=== PATIENT | female | born 1930 | race Caucasian/White ===

== ENCOUNTER 2021-06-05 19:23 | Inpatient (IN) | payer MEDICAID, OTHER ==
[~2021-06-05] VITALS: Ht 157.5 cm; Wt 85.7 kg
--- NOTE | 2021-06-05 19:30 | NUR ---
Note undone in EDM - 06/05/21 at 2015 by SAUNDRA PT BIBRA C/O AMS AND O2 SAT IN THE 80S. PT AAOX1 BREATHING EVENLY, BUT RAPIDLY. PT ATTACHED TO STAFFING MANAGER AND POX. MD AT BEDSIDE. SKIN IS WARM AND DRY. UPON ASSESSMENT FOUL ODOR NOTED FROM GENITAL AREA. PT GIVEN BLANKET AND CALL LIGHT WITHIN REACH
--- NOTE | 2021-06-05 19:30 | NUR ---
BLOOD SENT TO LAB
--- NOTE | 2021-06-05 19:30 | NUR ---
PT BIBRA C/O AMS AND O2 SAT IN THE 80S. PT AAOX1 BREATHING EVENLY, BUT RAPIDLY. PT PLACED ON 6L O2 VIA NC AND SATURATING AT 95%. PT ATTACHED TO FRAME POLISHER AND POX. MD AT BEDSIDE. SKIN IS WARM AND DRY. UPON ASSESSMENT FOUL ODOR NOTED FROM GENITAL AREA. PT GIVEN BLANKET AND CALL LIGHT WITHIN REACH
--- NOTE | 2021-06-05 19:35 | NUR ---
COVID SWAB COLLECTED AND SENT TO LAB
[2021-06-05 19:50] LABS: BASOPHILS # (AUTO) 0.2 K/uL (0.0-0.2); BASOPHILS % (AUTO) 3.1 % (0.0-2.0); HEMATOCRIT 42 % (33-45); HEMOGLOBIN 13.5 g/dL (11.5-14.8); LYMPHOCYTES # (AUTO) 2.2 K/uL (0.8-4.8); LYMPHOCYTES % (AUTO) 27.7 % (20.0-44.0); MEAN CORPUSCULAR HGB CONC 32 g/dl (31.0-36.0); MEAN CORPUSCULAR VOLUME 82 fL (82-100); MONOCYTES # (AUTO) 0.8 K/uL (0.1-1.30); MONOCYTES % (AUTO) 9.7 % (2.0-12.0); NEUTROPHILS # (AUTO) 4.7 K/uL (1.8-8.9); NEUTROPHILS % (AUTO) 59.5 % (43.0-81.0); PLATELET COUNT (AUTO) 309 K/uL (150-450); RED BLOOD CELL COUNT(AUTO) 5.13 MIL/uL (4.0-5.2); WHITE BLOOD COUNT (AUTO) 7.9 K/uL (4.3-11.0)
[2021-06-05 20:02] LABS: CALCIUM, SERUM 8.7 mg/dL (8.5-10.1); CARBON DIOXIDE 25 mmol/L (21-32); CHLORIDE 102 mmol/L (98-107); CREATININE 2.2 mg/dL (0.6-1.3); GLUCOSE 111 mg/dL (74-106); POTASSIUM 4.1 mmol/L (3.5-5.1); SODIUM SERUM 139 mmol/L (136-145); UREA NITROGEN, BLOOD 59 mg/dL (7-18)
--- NOTE | 2021-06-05 20:06 | NUR ---
URINE COLLECTED AND SENT TO LAB
[2021-06-05 20:09] LABS: ALANINE AMINOTRANSFERASE 29 U/L (12-78); ALKALINE PHOSPHATASE 59 U/L (46-116); ASPARTATE AMINOTRANSFERASE 49 U/L (15-37); BILIRUBIN,DIRECT 0.4 mg/dL (0.0-0.2); BILIRUBIN,TOTAL 0.7 mg/dL (0.2-1.0); TOTAL PROTEIN, SERUM 7.5 g/dL (6.4-8.2)
[2021-06-05 20:29] LABS: BILIRUBIN,URINE MODERATE (NEGATIVE); COLOR,URINE YELLOW (YELLOW); LEUKOCYTE ESTERASE ,URINE Negative (NEGATIVE); NITRITE, URINE Negative (NEGATIVE); PROTEIN,URINE 30 mg/dl (NEGATIVE); UGLUCOSE Negative (NEGATIVE)
[2021-06-05 20:35] LABS: BACTERIA,URINE Rare /HPF (None Seen); RBC,URINE NONE SEEN /HPF (0-2); SQUAMOUS EPITHELIAL CELL,UR Few /HPF (None Seen); WBC,URINE NONE SEEN /HPF (0-3)
[2021-06-05] MEDS ORDERED: CEFTRIAXONE 1 G in IV D5W 50 ML IV ONE (21:00)
[2021-06-05] MEDS ORDERED: IV NS 0.9% 500 ML IV ONE (21:00)
[2021-06-05] MEDS ORDERED: CEFTRIAXONE 1GM BAG (ER ONLY) 50 ML IV ONE (21:07)
[2021-06-05 21:11] LABS: ABG BASE EXCESS -3.5 mmol/L; ABG PCO2 34.4 mmHg (35.0-45.0); ABG PH 7.395 (7.350-7.450); ABG PO2 93.5 mmHg (75.0-100.0); AaDO2 152.1 mmHg; COHb 0.4 % (0.5-1.5); MetHb 0.4 % (0.0-1.5); O2Hb 95.2 % (94.0-97.0); SITE, ABG Right Radial; VENT MODE, BG 5L N/C
[2021-06-05] MEDS ORDERED: AZITHROMYCIN 500 MG VIAL ONE (21:21)
[2021-06-05] MEDS ORDERED: DEXAMETHASONE SOD PHOSPHATE 10 MG/ML VIAL ONE (21:21)
--- NOTE | 2021-06-05 21:29 | NUR ---
walt daughter [phone]
[2021-06-05] MEDS ORDERED: AZITHROMYCIN 500 MG in IV D5W 250 ML IV ONE (21:30)
[2021-06-05] MEDS ORDERED: DEXAMETHASONE SOD PHOSPHATE 10 MG/ML VIAL IV ONE (21:30)
[2021-06-05] MEDS ORDERED: ACETAMINOPHEN 325 MG TABLET PO PRN (22:00)
[2021-06-05] MEDS ORDERED: ONDANSETRON HCL/PF 4 MG/2 ML VIAL IVP PRN (22:00)
[2021-06-05] MEDS ORDERED: ZOLPIDEM TARTRATE 5 MG TABLET PO PRN (22:00)
[2021-06-05] MEDS ORDERED: Z GUARD REMEDY 2 OZ OINT TP PRN (22:00)
[2021-06-05] MEDS ORDERED: MAG HYDROX/AL HYDROX/SIMETH 30 ML UDC PO PRN (22:00)
[2021-06-05] MEDS ORDERED: MAGNESIUM HYDROXIDE 30 ML UDC PO PRN (22:00)
--- NOTE | 2021-06-05 22:16 | NUR ---
BED 103
--- NOTE | 2021-06-05 23:43 | NUR ---
attempted to give report to rn. will call back
[2021-06-06 00:45] VITALS: BP 102/72
--- NOTE | 2021-06-06 01:00 | NUR ---
RN NOTES, AT 0045 RECEIVED 89 YO FEMALE ADMITTED FROM ER DEPARTMENT VIA STRETCHER ACCOMPANIED BY 3NURSES, PATIENT AWAKE, A/O TO SELF, UNABLE TO GIVE FURTHER INFORMATION, UNDER MEDICAL SERVICES OF DR JACOB WATSON, WITH ADMITTING DX COVID/PNA, BREATHING EVEN AND UNLABORED, NO SOB/ACUTE DISTRESS NOTED AT THIS TIME, ON 5LPM VIA NC, WITH O2 SAT >96%, POSITIVE RAPID FOR COVID 19, ISOLATION PRECAUTION IN PLACED, IV ACCESS IN RIGHT AC AND LEFT AC BOTH PATENT AND INTACT 0040, , SKIN INTACT, AFEBRILE, SOME REDNESS IN SACRAL/GLUTEAL, BREAST FOLDS, BILATERAL HEELS, PICTURES TAKEN AND FILED IN CHART, WHEN ATTACHED TO TELE MONITOR PATIENT, NOTED NSR WITH HR 80S, ALL NEEDS PROVIDED, BED LOCKED AND IN LOWEST POSITION, WILL CONT TO MONITOR CLOSELY.
--- NOTE | 2021-06-06 03:35 | NUR ---
RN NOTES, UPDATE GIVEN TO DAUGHTER REID, AND SHE STATED SHE WANTS HER MOM FULL CODE.
[2021-06-06 04:00] VITALS: BP 140/76
[2021-06-06 06:24] LABS: BASOPHILS % (AUTO) 0.3 % (0.0-2.0); HEMATOCRIT 36 % (33-45); HEMOGLOBIN 11.9 g/dL (11.5-14.8); LYMPHOCYTES # (AUTO) 1.2 K/uL (0.8-4.8); MEAN CORPUSCULAR HGB CONC 33 g/dl (31.0-36.0); MEAN CORPUSCULAR VOLUME 81 fL (82-100); MONOCYTES # (AUTO) 0.3 K/uL (0.1-1.30); MONOCYTES % (AUTO) 4.1 % (2.0-12.0); NEUTROPHILS # (AUTO) 4.8 K/uL (1.8-8.9); NEUTROPHILS % (AUTO) 76.6 % (43.0-81.0); PLATELET COUNT (AUTO) 289 K/uL (150-450); RED BLOOD CELL COUNT(AUTO) 4.37 MIL/uL (4.0-5.2); WHITE BLOOD COUNT (AUTO) 6.2 K/uL (4.3-11.0)
--- NOTE | 2021-06-06 06:32 | NUR ---
RN NOTE PATIENT A/O TO SELF, ON NC @5LPM O2 SAT > 94%, NO SOB/ACUTE DISTRESS NOTED DURING THE REST OF THE NIGHT, NO EPISODES OF DESATURATION NOTED, ON BILATERAL SOF WRIST RESTRAINS, FREQUENT CIRCULATION CHEKS DONE, NO CIRCULATION COMPROMISED, NO ABNORMALITY NOTED AT SITE, ALL SAFETY PRECAUTIONS IN PLACED, NO SIGNIFICANT CHANGE IN CONDITION, CALL LIGHT WITHIN REACH, WILL ENDORSE CONTINUITY OFF CARE TO ONCOMING NURSE.
[2021-06-06 06:41] LABS: CALCIUM, SERUM 8.2 mg/dL (8.5-10.1); CARBON DIOXIDE 25 mmol/L (21-32); CHLORIDE 104 mmol/L (98-107); CREATININE 1.9 mg/dL (0.6-1.3); GLUCOSE 178 mg/dL (74-106); MAGNESIUM 3.1 mg/dL (1.8-2.4); PHOSPHORUS 5.2 mg/dL (2.5-4.9); POTASSIUM 4.4 mmol/L (3.5-5.1); SODIUM SERUM 142 mmol/L (136-145); UREA NITROGEN, BLOOD 56 mg/dL (7-18)
[2021-06-06 06:59] LABS: CHOLESTEROL 129 mg/dL (<200); HDL CHOLESTEROL 43 mg/dL (40-60); LDL 80 mg/dL (0-99); THYROID STIMULATING HORMONE 0.389 uIU/mL (0.358-3.74); TRIGLYCERIDES 98 mg/dL (30-150)
[2021-06-06] MEDS: PANTOPRAZOLE 40 MG TABLET.DR PO SCH (07:30)
--- NOTE | 2021-06-06 07:30 | NUR ---
PT RECEIVED RESTING COMFORTABLY IN BED. NO S/S OR C/O PAIN OR DISTRESS NOTED. SIDE RAILS UP X2, CALL LIGHT LEFT WITHIN REACH. WILL CONTINUE PLAN OF CARE.
[2021-06-06] MEDS: DEXAMETHASONE SOD PHOSPHATE 10 MG/ML VIAL IV SCH (08:37)
[2021-06-06] MEDS: IV D5/ 0.9% NACL 1,000 ML IV PRN (09:37)
[2021-06-06] MEDS: HEPARIN SODIUM, PORCINE 5000 UNITS/1 ML VIAL SQ SCH ×3 (09:47→21:38)
[2021-06-06] MEDS: QUETIAPINE FUMARATE 25 MG TABLET PO SCH ×2 (12:09→17:45)
[2021-06-06] MEDS ORDERED: QUETIAPINE FUMARATE 25 MG TABLET PO PRN (15:00)
--- NOTE | 2021-06-06 18:26 | NUR ---
CHANGE OF SHIFT REPORT PT RESTING COMFORTABLY IN BED. NO S/S OR C/O PAIN OR DISTRESS NOTED. SIDE RAILS UP X2, CALL LIGHT LEFT WITHIN REACH. PT KEPT CLEAN, DRY, AND COMFORTABLE. NO SIGNIFICANT CHANGES SINCE PREVIOUS SHIFT. WILL GIVE REPORT TO ALFRED MUNOZ.
[2021-06-06 20:00] VITALS: BP 148/87
[2021-06-06] MEDS ORDERED: REMDESIVIR (CHARGED) 200 MG, *LOADING DOSE 1 EA in IV NS 0.9% 210 ML IV ONE (21:00)
--- NOTE | 2021-06-06 21:30 | NUR ---
RESIDENT CAREGIVER NOTES NOTIFIED [facility] TELETYPESETTER MONITOR RE REMDESIVIR ORDER. PER [facility]SHA, NEEDS AUTH FROM [facility]. WON'T BE ABLE TO ADMINISTER DOSE FOR TONIGHT. NOTIFIED TWISTING MACHINE OPERATOR. NOTIFIED JUNIOR ASSISTANT MANAGER. NOTIFIED MAHNAZ RESAW OPERATOR TELETYPESETTER MONITOR. WILL CONTINUE TO MONITOR.
[2021-06-06] MEDS: AZITHROMYCIN 500 MG in IV D5W 250 ML IV SCH (21:37)
[2021-06-06] MEDS: CEFTRIAXONE 1 G in IV D5W 50 ML IV SCH (21:37)
--- NOTE | 2021-06-06 21:38 | NUR ---
CLUSTER BORE OPERATOR NOTES PT REFUSED TO HAVE HEPARIN AT THIS TIME. EXPLAINED TO PT IMPORTANCE OF HEPARIN IN HER POC BUT PT STILL REFUSED. WILL CONTINUE TO MONITOR.
[2021-06-07] VITALS (7 sets, daily range): BP systolic 141–163; BP diastolic 81–99
--- NOTE | 2021-06-07 04:00 | NUR ---
SUPERVISOR ACOUSTICAL TILE CARPENTERS NOTES PT REFUSED TO HAVE OXYGEN ON. EXPLAINED TO PT IMPORTANCE OF OXYGEN IN HER POC BUT PT STILL REFUSED. WILL CONTINUE TO MONITOR.
[2021-06-07] MEDS: IV D5/ 0.9% NACL 1,000 ML IV PRN ×2 (05:54→18:32)
--- NOTE | 2021-06-07 06:00 | NUR ---
TECHNICAL ASSISTANT NOTES PT REFUSED TO HAVE BLOOD DRAW. EXPLAINED TO PT IMPORTANCE OF LABS IN HER POC BUT PT STILL REFUSED. WILL CONTINUE TO MONITOR.
--- NOTE | 2021-06-07 06:21 | NUR ---
SECURITIES DEALER NOTES AWAKE & RESPONSIVE. NOT IN ANY DISTRESS. NO SOB NOTED. DENIES ANY PAIN OR DISCOMFORT AT THIS TIME. STILL REFUSING OXYGEN AT THIS TIME. ON TELE SR @ 73 WITH IVF INFUSING WELL. AM CARE DONE. MONITORED ACCORDINGLY. CALL LIGHT WITHIN REACH. BED IN LOWEST POSITION. SR UP X 3 WITH BED ALARM ON FOR SAFETY. WILL ENDORSE TO NEXT SHIFT.
--- NOTE | 2021-06-07 07:52 | NUR ---
RN NOTE PATIENT IS IN BED WITH HOB AT SEMI CABA'S POSITION. PATIENT IS AOX1 AND CONFUSED. PATIENT IS ON 4L NC WITH NO SIGNS OF LABORED BREATHING. RAC #18 IS PATENT AND INTACT. BED IS LOCKED IN THE LOWEST POSITION, 3 GUARD RAILS RAISED, CALL RODRÍGUEZ WITHIN REACH, AND ALL HOSPITAL SAFETY PRECAUTIONS ARE BEING FOLLOWED. WILL CONTINUE OT MONITOR THROUGHOUT SHIFT.
[2021-06-07] MEDS: QUETIAPINE FUMARATE 25 MG TABLET PO SCH ×2 (08:50→16:50)
[2021-06-07] MEDS: PANTOPRAZOLE 40 MG TABLET.DR PO SCH (08:51)
[2021-06-07] MEDS: DEXAMETHASONE SOD PHOSPHATE 10 MG/ML VIAL IV SCH (08:51)
[2021-06-07] MEDS: HEPARIN SODIUM, PORCINE 5000 UNITS/1 ML VIAL SQ SCH ×3 (08:54→21:51)
--- NOTE | 2021-06-07 09:00 | NUR ---
RN NOTE NOTIFIED DR. CH OF PATIENT'S BP 160/80. ORDERING NORVASC 5 MG PO DAILY DIRECTED. WILL CONTINUE TO MONITOR.
[2021-06-07] MEDS: AMLODIPINE BESYLATE 5 MG TABLET PO SCH (09:20)
[2021-06-07 11:42] LABS: BASOPHILS # (AUTO) 0.1 K/uL (0.0-0.2); BASOPHILS % (AUTO) 0.6 % (0.0-2.0); HEMATOCRIT 40 % (33-45); LYMPHOCYTES # (AUTO) 2.3 K/uL (0.8-4.8); LYMPHOCYTES % (AUTO) 17.2 % (20.0-44.0); MEAN CORPUSCULAR HGB CONC 33 g/dl (31.0-36.0); MEAN CORPUSCULAR VOLUME 82 fL (82-100); MONOCYTES % (AUTO) 7.3 % (2.0-12.0); NEUTROPHILS # (AUTO) 10.2 K/uL (1.8-8.9); NEUTROPHILS % (AUTO) 74.9 % (43.0-81.0); PLATELET COUNT (AUTO) 383 K/uL (150-450); RED BLOOD CELL COUNT(AUTO) 4.86 MIL/uL (4.0-5.2); WHITE BLOOD COUNT (AUTO) 13.6 K/uL (4.3-11.0)
[2021-06-07 11:48] LABS: CALCIUM, SERUM 8.4 mg/dL (8.5-10.1); CARBON DIOXIDE 26 mmol/L (21-32); CHLORIDE 105 mmol/L (98-107); CREATININE 1.5 mg/dL (0.6-1.3); GLUCOSE 250 mg/dL (74-106); SODIUM SERUM 140 mmol/L (136-145); UREA NITROGEN, BLOOD 43 mg/dL (7-18)
[2021-06-07 11:58] LABS: C-REACTIVE PROTEIN 4.8 mg/dL (0.0-0.9)
[2021-06-07] MEDS ORDERED: INSULIN REGULAR, HUMAN 100 UNIT/ML 10 ML VIAL IV ONE (13:00)
[2021-06-07] MEDS ORDERED: DEXTROSE 50%-WATER 50 ML DISP.SYRIN IVP ONE (13:00)
[2021-06-07] MEDS ORDERED: SODIUM POLYSTYRENE SULFONATE 15 G/60 ML BOTTLE PO ONE ×2 (13:00→14:30)
[2021-06-07] MEDS ORDERED: FUROSEMIDE 20 MG/2 ML VIAL IV ONE (13:00)
[2021-06-07] MEDS: BLOOD SUGAR DIAGNOSTIC 1 EACH STRIP IN SCH ×3 (14:18→21:47)
[2021-06-07] MEDS: INSULIN REGULAR, HUMAN 100 UNIT/ML 3 ML VIAL SQ PRN ×2 (14:18→17:23)
[2021-06-07 14:25] LABS: ALBUMIN 2.6 g/dL (3.4-5.0); BILIRUBIN,DIRECT 0.1 mg/dL (0.0-0.2); BILIRUBIN,TOTAL 0.5 mg/dL (0.2-1.0); TOTAL PROTEIN, SERUM 7.2 g/dL (6.4-8.2)
[2021-06-07] MEDS ORDERED: DEXTROSE 50%-WATER 50 ML DISP.SYRIN IV PRN (14:30)
--- NOTE | 2021-06-07 18:42 | NUR ---
RN NOTE PATIENT IS IN BED WITH HOB AT SEMI CABA'S POSITION. PATIENT IS AOX1 AND CONFUSED. PATIENT IS ON 4L NC WITH NO SIGNS OF LABORED BREATHING. RAC #18 IS PATENT AND INTACT. BED IS LOCKED IN THE LOWEST POSITION, 3 GUARD RAILS RAISED, CALL RODRÍGUEZ WITHIN REACH, AND ALL HOSPITAL SAFETY PRECAUTIONS ARE BEING FOLLOWED. ALL DUE MEDS GIVEN AND PATIENT REMAINED STABLE THROUGHOUT SHIFT. WILL ENDORSE TO SYNTHETIC SOIL BLOCKS PULPER RN.
[2021-06-07 18:43] LABS: CALCIUM, SERUM 7.9 mg/dL (8.5-10.1); CARBON DIOXIDE 28 mmol/L (21-32); CHLORIDE 104 mmol/L (98-107); CREATININE 1.5 mg/dL (0.6-1.3); GLUCOSE 271 mg/dL (74-106); POTASSIUM 3.8 mmol/L (3.5-5.1); SODIUM SERUM 142 mmol/L (136-145); UREA NITROGEN, BLOOD 36 mg/dL (7-18)
--- NOTE | 2021-06-07 19:15 | NUR ---
RN OPENING NOTE PATIENT IN BED, EYES CLOSED. EASILY AWAKENED. PATIENT IS A/O X 1 AT THIS TIME, CONFUSED. PATIENT HAS BILATERAL SOFT WRIST RESTRAINTS ON D/T PULLING ON TUBES. PATIENT ALSO HAS A SWEENEY PRESENT DRAINING YELLOW URINE. PATIENT HAS 4 L ON NC, BREATHING EVEN AND UNLABORED. RAC 18 G IV ACCESS PATENT AND INTACT, RUNNING D5 NS AT 75 ML/HR. SAFETY MEASURES IN PLACE: BED LOCKED AND IN LOWEST POSITION, CALL LIGHT WITHIN REACH, SIDE RAILS UP. WILL MONITOR PATIENT'S BEHAVIOR Q 2H AND SAFETY.
[2021-06-07] MEDS ORDERED: REMDESIVIR (CHARGED) 100 MG in IV NS 0.9% 230 ML IV SCH (21:00)
[2021-06-07] MEDS: *INSULIN REGULAR(HUMULIN R)HUM 100 UNIT/ML VIAL SQ PRN (21:50)
--- NOTE | 2021-06-07 21:50 | NUR ---
RN NOTE BS 167 MG/DL. 3 UNITS COVERAGE GIVEN. PROVIDED SNACK, PATIENT REFUSED AT THIS TIME. WILL MONITOR PATIENT FOR HYPOGLYCEMIA.
[2021-06-07] MEDS: CEFTRIAXONE 1 G in IV D5W 50 ML IV SCH (21:55)
[2021-06-07] MEDS: AZITHROMYCIN 500 MG in IV D5W 250 ML IV SCH (22:31)
[2021-06-08] VITALS (7 sets, daily range): BP systolic 140–173; BP diastolic 73–101
--- NOTE | 2021-06-08 00:53 | NUR ---
RN NOTE PATIENT REFUSING HYDRALAZINE, RISK AND BENEFITS EDUCATION GIVEN, PATIENT CONTINUES TO REFUSE. CHARGE NURSE AWARE. WILL RECHECK BP AT A LATER TIME. Addendum: 06/08/21 at 0436 by ANAI PEARSON RN BP WAS 173/101
--- NOTE | 2021-06-08 03:59 | NUR ---
RN NOTE PATIENT EXTREMELY AGITATED AT THIS TIME, UNABLE TO TAKE ACCURATE BP D/T PATIENT SCREAMING AND YELLING. NOTIFIED MD OF SITUATION AND REQUESTED FOR MED TO CALM PATIENT DOWN. WAITING FOR MD RESPONSE.
[2021-06-08] MEDS: IV D5/ 0.9% NACL 1,000 ML IV PRN (06:28)
--- NOTE | 2021-06-08 06:30 | NUR ---
RN CLOSING NOTE PATIENT'S BP 168/101, REFUSING HYDRALAZINE STILL. NOTIFIED THAT PATIENT'S REFUSING HYDRALAZINE. PATIENT IS STILL A/O X 1, CONFUSED. NOT IN ANY APPARENT DISTRESS. IV FLUIDS D5 NS RUNNING AT 75 ML/HR. BS 109 MG/DL, NO COVERAGE GIVEN, OFFERED PATIENT SNACKS BUT REFUSED. WILL ENDORSE TO DAY SHIFT NURSE FOR ANASTACIO. Addendum: 06/08/21 at 0726 by ANAI PEARSON RN OBTAINED ORDER FOR LORAZEPAM 1 MG IV Q8HR PRN
[2021-06-08] MEDS: BLOOD SUGAR DIAGNOSTIC 1 EACH STRIP IN SCH ×4 (06:35→21:08)
--- NOTE | 2021-06-08 07:30 | NUR ---
RN OPENING NOTES Patient was received in bed. Patient on arce cath iwth clear yellow urine. On 4 lpm via n/c. HOB kept elevated. Iv fluids to right arm running at 75 cc/hour. Will continue to monitor. Call light with in reach.
[2021-06-08] MEDS: QUETIAPINE FUMARATE 25 MG TABLET PO SCH ×2 (08:38→17:06)
[2021-06-08] MEDS: AMLODIPINE BESYLATE 5 MG TABLET PO SCH (08:38)
[2021-06-08] MEDS: PANTOPRAZOLE 40 MG TABLET.DR PO SCH (08:38)
[2021-06-08] MEDS: DEXAMETHASONE SOD PHOSPHATE 10 MG/ML VIAL IV SCH (08:39)
[2021-06-08] MEDS: HEPARIN SODIUM, PORCINE 5000 UNITS/1 ML VIAL SQ SCH ×2 (08:52→21:12)
--- NOTE | 2021-06-08 10:00 | NUR ---
Patient's restraints removed and patient in good stable condition and not agitated. Fluids encouraged as fara. Bed alarm in place.
[2021-06-08] MEDS: INSULIN REGULAR, HUMAN 100 UNIT/ML 3 ML VIAL SQ PRN ×2 (14:15→18:56)
--- NOTE | 2021-06-08 15:00 | NUR ---
Received order from Dr Federico Chirinos to d/c iv fluids due to patient drinking fluids on her own.
--- NOTE | 2021-06-08 18:59 | NUR ---
RN CLOSING NOTES Patient was received in bed. Patient on arce cath iwth clear yellow urine OF 400 CC. On room air with 02 sat of 98%. HOB kept elevated. Iv site to left hand patent and flushes well. Will continue to monitor. Call light with in reach.Will endorse to next shift for ANASTACIO. Bed is in lowest and locked position. Bed alarm on for safety and fall.
--- NOTE | 2021-06-08 20:00 | NUR ---
UNIT SECY OPENING NOTE RECEIVED PT IN BED WITH EYES CLOSED, AROUSABLE TO STIMULATION. A/O X1-2, CONFUSED AT TIMES. PT IS STABLE ON ROOM AIR SATURATING AT 98%. NO SOB OR S/S OF RESPIRATORY DISTRESS NOTED. PT ON EXTERNAL FINANCE MGR READING SR AT 60 BPM. PT HAS NO C/O PAIN OR DISCOMFORT AT THIS TIME. SWEENEY CATH IN PLACE DRAINING CLEAR YELLOW URINE. IV ACCESS IN LEFT HAND #24, INTACT AND PATENT. SAFETY MEASURES MAINTAINED. BED IN LOWEST LOCKED POSITION, HOB ELEVATED, SIDE RAILS UP X3. CALL LIGHT AND TABLE WITHIN REACH. WILL CONTINUE WITH PLAN OF CARE.
[2021-06-08] MEDS: CEFTRIAXONE 1 G in IV D5W 50 ML IV SCH (21:07)
[2021-06-08] MEDS: *INSULIN REGULAR(HUMULIN R)HUM 100 UNIT/ML VIAL SQ PRN (21:48)
[2021-06-08] MEDS: AZITHROMYCIN 500 MG in IV D5W 250 ML IV SCH (21:49)
[2021-06-09] VITALS: BP 139/85
[2021-06-09 04:00] VITALS: BP 135/80
--- NOTE | 2021-06-09 06:04 | NUR ---
TRY ON BASTER CLOSING NOTE PT IS IN BED WITH EYES CLOSED, AROUSABLE TO STIMULATION. A/O X1-2, CONFUSED AT TIMES. PT IS STABLE ON ROOM AIR SATURATING AT 97%. NO SOB OR S/S OF RESPIRATORY DISTRESS NOTED. PT ON EXTERNAL MANAGER MEETING READING SR AT 67 BPM. PT HAS NO C/O PAIN OR DISCOMFORT AT THIS TIME. SWEENEY CATH IN PLACE DRAINING CLEAR YELLOW URINE. PT NOTED WITH BILATERAL SOFT WRIST RESTRAINTS; GOOD CIRCULATION NOTED. IV ACCESS IS INTACT, PATENT, AND FLUSHING WELL. ALL NEEDS HAVE BEEN MET. SAFETY AND ISOLATION PRECAUTIONS MAINTAINED AT ALL TIMES. BED IN LOWEST LOCKED POSITION, HOB ELEVATED, SIDE RAILS UP X3. CALL LIGHT AND TABLE WITHIN REACH. WILL ENDORSE TO ONCOMING NURSE FOR ANASTACIO.
[2021-06-09] MEDS: BLOOD SUGAR DIAGNOSTIC 1 EACH STRIP IN SCH ×4 (07:40→21:21)
--- NOTE | 2021-06-09 07:48 | NUR ---
DEVULCANIZER TENDER OPENING NOTES RECEIVED PATIENT AWAKE IN BED ASLEEP, EASY TO AROUSE. ALERT AND ORIENTED X2 WITH CONFUSION. NO SIGNS OR SYMPTOMS OF DISTRESS NOTED. BREATHING IS EVEN AND UNLABORED. NO COMPLAINTS OF PAIN AT THIS TIME. IV ACCESS LHAND#24 PATENT AND INTACT. PATIENT TOLERATING WELL ON ROOM AIR WITH SPO2 AT 98%. PATIENT ON EXTERNAL TELE MONITOR WITH READING SINUS RHYTHM. SWEENEY CATHETER DRAINING WELL WITH YELLOW TO CLEAR URINE SAFETY MEASURES ARE IN PLACE WITH BED LOCKED AT LOW POSITION, SIDE RAILS UP X 2. WILL CONTINUE TO MONITOR THROUGHOUT SHIFT.
[2021-06-09 08:00] VITALS: BP 162/85
[2021-06-09] MEDS: PANTOPRAZOLE 40 MG TABLET.DR PO SCH (08:23)
[2021-06-09] MEDS: QUETIAPINE FUMARATE 25 MG TABLET PO SCH ×2 (08:42→16:01)
[2021-06-09] MEDS: DEXAMETHASONE SOD PHOSPHATE 10 MG/ML VIAL IV SCH (08:42)
[2021-06-09] MEDS: HEPARIN SODIUM, PORCINE 5000 UNITS/1 ML VIAL SQ SCH ×2 (08:44→21:21)
[2021-06-09] MEDS: AMLODIPINE BESYLATE 5 MG TABLET PO SCH (08:44)
--- NOTE | 2021-06-09 09:32 | NUR ---
REFRIGERATION PERSON NOTES PATIENT IS EXTREMELY AGITATED, SCREAMING AND YELLING, ATTEMPTING TO GET UP FROM BED IN A HOSTILE MANNER. MD AND CHARGE NURSE MADE AWARE.
[2021-06-09] MEDS: INSULIN REGULAR, HUMAN 100 UNIT/ML 3 ML VIAL SQ PRN ×2 (11:59→17:31)
[2021-06-09 12:00] VITALS: BP 136/97
--- NOTE | 2021-06-09 12:21 | NUR ---
FNPS NOTES SOFT RESTRAINTS REMOVED AT THIS TIME. PATIENT EATING LUNCH. NOT IN ANY APPARENT DISTRESS, CALM AND COOPERATING WITH STAFF.
[2021-06-09 16:09] VITALS: BP 157/80
[2021-06-09] MEDS: LORAZEPAM INJ 2 MG/ML VIAL IV PRN (18:28)
--- NOTE | 2021-06-09 18:58 | NUR ---
TRADE MARKER CLOSING NOTES PATIENT AWAKE IN BED. ALERT AND ORIENTED X2 WITH CONFUSION. NO SIGNS OR SYMPTOMS OF DISTRESS NOTED. BREATHING IS EVEN AND UNLABORED. IV ACCESS LHAND#24 PATENT AND INTACT. PATIENT TOLERATING WELL ON ROOM AIR WITH SPO2 AT 98%. REMOVED EXTERNAL TELE MONITOR PER MD ORDER. SWEENEY CATHETER DRAINING WELL WITH YELLOW TO CLEAR URINE. SAFETY MEASURES MAINTAINED. WILL ENDORSE CONTINUITY OF CARE ONCOMING SHIFT.
[2021-06-09 20:00] VITALS: BP 140/77
[2021-06-09] MEDS: CEFTRIAXONE 1 G in IV D5W 50 ML IV SCH (21:22)
[2021-06-09] MEDS: *INSULIN REGULAR(HUMULIN R)HUM 100 UNIT/ML VIAL SQ PRN (21:32)
[2021-06-09] MEDS: AZITHROMYCIN 500 MG in IV D5W 250 ML IV SCH (22:27)
[2021-06-10 04:00] VITALS: BP 146/86
--- NOTE | 2021-06-10 07:32 | NUR ---
RN NOTES PATIENT RECEIVED IN BED SLEEPING, ALERT AND ORIENTED X 2. ON NASAL CANNULA 2 LITERS WITH NO SIGNS OF RESPIRATORY DISTRESS WITH EVEN NON-LABORED BREATHING. PATIENT IV ACCESS INTACT ON RIGHT HAND SALINE LOCK. SKIN WARM AND DRY TO TOUCH. SWEENEY CATHETER IN PLACE. PATIENT PRESENTS WITH NO SIGNS OF PAIN OR DISCOMFORT. SAFETY PRECAUTIONS IMPLEMENTED WITH BED LOCKED, BILATERAL SIDE RAILS UP, BED ALARM ON, AND CALL LIGHT WITHIN EASY REACH. WILL CONTINUE TO MONITOR PATIENT.
[2021-06-10 08:00] VITALS: BP 136/73
[2021-06-10] MEDS: DEXAMETHASONE SOD PHOSPHATE 10 MG/ML VIAL IV SCH (08:32)
[2021-06-10] MEDS: PANTOPRAZOLE 40 MG TABLET.DR PO SCH (08:32)
[2021-06-10] MEDS: QUETIAPINE FUMARATE 25 MG TABLET PO SCH ×2 (08:32→16:28)
[2021-06-10] MEDS: BLOOD SUGAR DIAGNOSTIC 1 EACH STRIP IN SCH ×4 (08:32→21:45)
[2021-06-10] MEDS: AMLODIPINE BESYLATE 5 MG TABLET PO SCH (08:33)
[2021-06-10] MEDS: HEPARIN SODIUM, PORCINE 5000 UNITS/1 ML VIAL SQ SCH ×2 (08:34→21:45)
[2021-06-10] MEDS: LORAZEPAM INJ 2 MG/ML VIAL IV PRN (09:47)
--- NOTE | 2021-06-10 09:50 | NUR ---
RN NOTES PATIENT STARTED TO GET AGITATED AND ANXIOUS, PROVIDED A CALM ENVIRONMENT TO PATIENT AND PATIENT BECAME MORE ANXIOUS, ADMINISTERED PRN ATIVAN ORDERED. SAFETY PRECAUTIONS IMPLEMENTED WILL CONTINUE TO MONITOR PATIENT.
[2021-06-10 12:09] LABS: ALANINE AMINOTRANSFERASE 26 U/L (12-78); ALBUMIN 2.4 g/dL (3.4-5.0); ALKALINE PHOSPHATASE 52 U/L (46-116); ASPARTATE AMINOTRANSFERASE 36 U/L (15-37); BILIRUBIN,TOTAL 0.6 mg/dL (0.2-1.0); CALCIUM, SERUM 8.3 mg/dL (8.5-10.1); CARBON DIOXIDE 28 mmol/L (21-32); CHLORIDE 106 mmol/L (98-107); CREATININE 1.4 mg/dL (0.6-1.3); GLUCOSE 179 mg/dL (74-106); POTASSIUM 3.6 mmol/L (3.5-5.1); SODIUM SERUM 142 mmol/L (136-145); TOTAL PROTEIN, SERUM 6.2 g/dL (6.4-8.2); UREA NITROGEN, BLOOD 33 mg/dL (7-18)
[2021-06-10] MEDS: INSULIN REGULAR, HUMAN 100 UNIT/ML 3 ML VIAL SQ PRN ×2 (12:19→16:34)
[2021-06-10 16:00] VITALS: BP 150/90
--- NOTE | 2021-06-10 18:09 | NUR ---
RN NOTES PATIENT IN BED SLEEPING, ALERT AND ORIENTED X 2. ON NASAL CANNULA 2 LITERS WITH NO SIGNS OF RESPIRATORY DISTRESS WITH EVEN NON-LABORED BREATHING. MET ALL OF PATIENT'S NEEDS. PATIENT IV ACCESS INTACT ON RIGHT HAND SALINE LOCK. SKIN KEPT CLEAN, WARM AND DRY TO TOUCH. SWEENEY CATHETER IN PLACE. PATIENT PRESENTS WITH NO SIGNS OF PAIN OR DISCOMFORT. SAFETY PRECAUTIONS IMPLEMENTED WITH BED LOCKED, BILATERAL SIDE RAILS UP, BED ALARM ON, AND CALL LIGHT WITHIN EASY REACH. WILL ENDORSE PLAN OF CARE TO UPCOMING RN.
--- NOTE | 2021-06-10 19:30 | NUR ---
RN NOTE RECEIVED PATIENT IN BED. A/OX2 -3 . PATIENT IS VERY LETHARGIC AND SLEEPY. ON OXYGEN 2L/MIN VIA NASAL CANNULA. RESPIRATIONS ARE EVEN AND UNLABORED. NO S/S SOB NOTE. NO C/O PAIN AT THIS TIME. INN O APPARENT DISTRESS. V ACCESS IN RIGHT HAND #22 PATENT AND SALINE LOCKED. SWEENEY CATH IS PRESENT, DRAINING TO GRAVITY. BED IS LOW AND LOCKED, HOB ELEVATED IN IN SEMI FOWLERS, SIDE RAILS UPX X2, CALL LIGHT WITHIN REACH. WILL CONTINUE TO MONITOR THROUGHOUT SHIFT.
[2021-06-10 20:00] VITALS: BP 142/87
[2021-06-10] MEDS: CEFTRIAXONE 1 G in IV D5W 50 ML IV SCH (21:45)
[2021-06-10] MEDS: *INSULIN REGULAR(HUMULIN R)HUM 100 UNIT/ML VIAL SQ PRN (21:58)
--- NOTE | 2021-06-11 03:15 | NUR ---
RN NOTE PATIENT REFUSED TO HAVE WOUND PHOTOS TAKEN PER PROTOCOL QSUNDAY.
[2021-06-11 04:00] VITALS: BP 168/85
[2021-06-11] MEDS: hydrALAZINE HCL 25 MG TABLET PO PRN ×2 (05:11→20:07)
--- NOTE | 2021-06-11 06:12 | NUR ---
RN NOTE PATIENT RESTING IN BED. A/OX2 -3 . REMAINS ON OXYGEN 2L/MIN VIA NASAL CANNULA. PATIENT CONTINUES TO REMOVE NASAL CANNULA THROUGHOUT NIGHT. O2 SAT ON ROOM AIR IS 86%. NO C/O PAIN. IV IN RIGHT HAND #22. SWEENEY CATH OUTPUT 200ML YELLOW WITH SEDIMENT. BED IS LOW AND LOCKED, HOB ELEVATED IN IN SEMI FOWLERS, SIDE RAILS UP X2, CALL LIGHT WITHIN REACH. WILL ENDORSE TO ONCOMING SHIFT.
--- NOTE | 2021-06-11 07:34 | NUR ---
RN OPENING NOTE Pt is awake, A/O X 2-3, on 2 liters of 02 via NC, HOB on semi-fowlers position, denies SOB nor respiratory distress, Right Hand IV site with clean dressing. Safety precautions implemented, bed locked in lowest position, call light within reach.
[2021-06-11 08:00] VITALS: BP 98/65
[2021-06-11] MEDS: AMLODIPINE BESYLATE 5 MG TABLET PO SCH (08:06)
[2021-06-11] MEDS: PANTOPRAZOLE 40 MG TABLET.DR PO SCH (08:18)
[2021-06-11] MEDS: DEXAMETHASONE SOD PHOSPHATE 10 MG/ML VIAL IV SCH (08:18)
[2021-06-11] MEDS: QUETIAPINE FUMARATE 25 MG TABLET PO SCH ×2 (08:18→16:37)
[2021-06-11] MEDS: HEPARIN SODIUM, PORCINE 5000 UNITS/1 ML VIAL SQ SCH ×2 (08:19→20:08)
[2021-06-11] MEDS: BLOOD SUGAR DIAGNOSTIC 1 EACH STRIP IN SCH ×4 (08:35→21:26)
[2021-06-11 11:10] LABS: BASOPHILS % (AUTO) 0.3 % (0.0-2.0); HEMATOCRIT 36 % (33-45); HEMOGLOBIN 11.5 g/dL (11.5-14.8); LYMPHOCYTES # (AUTO) 1.1 K/uL (0.8-4.8); LYMPHOCYTES % (AUTO) 9.7 % (20.0-44.0); MEAN CORPUSCULAR HGB CONC 32 g/dl (31.0-36.0); MEAN CORPUSCULAR VOLUME 82 fL (82-100); MONOCYTES # (AUTO) 0.6 K/uL (0.1-1.30); MONOCYTES % (AUTO) 5.1 % (2.0-12.0); NEUTROPHILS # (AUTO) 9.5 K/uL (1.8-8.9); NEUTROPHILS % (AUTO) 84.9 % (43.0-81.0); PLATELET COUNT (AUTO) 306 K/uL (150-450); RED BLOOD CELL COUNT(AUTO) 4.38 MIL/uL (4.0-5.2); WHITE BLOOD COUNT (AUTO) 11.2 K/uL (4.3-11.0)
[2021-06-11 11:13] LABS: CALCIUM, SERUM 8.2 mg/dL (8.5-10.1); CARBON DIOXIDE 30 mmol/L (21-32); CHLORIDE 103 mmol/L (98-107); CREATININE 1.4 mg/dL (0.6-1.3); GLUCOSE 217 mg/dL (74-106); POTASSIUM 3.4 mmol/L (3.5-5.1); SODIUM SERUM 141 mmol/L (136-145); UREA NITROGEN, BLOOD 31 mg/dL (7-18)
--- NOTE | 2021-06-11 12:06 | NUR ---
B/S 200mg/dl, covered per insulin protocol.
[2021-06-11] MEDS: INSULIN REGULAR, HUMAN 100 UNIT/ML 3 ML VIAL SQ PRN ×2 (12:09→16:56)
[2021-06-11 16:00] VITALS: BP 123/65
--- NOTE | 2021-06-11 18:43 | NUR ---
Pt is A/O X3, no respiratory distress, no SOB, satting 90-92% room air. Participative with therapy, ambulatory with one person assist using FWW. R Hand IV site clean with no s/sx of infiltration. F/C patent. Safety precautions implemented, bed locked in lowest position, Call light within reach.. Addendum: 06/11/21 at 1847 by BUCK ANGULO RN RN CLOSING NOTES
--- NOTE | 2021-06-11 19:30 | NUR ---
RN NOTE RECEIVED PATIENT IN BED. A/OX3. TOLERATING ROOM AIR. RESPIRATIONS ARE EVEN AND UNLABORED. NO S/S SOB NOTED. NO C/O PAIN AT THIS TIME. IN NO APPARENT DISTRESS. IV ACCESS IN RIGHT HAND #20 PATENT AND SALINE LOCKED. BED IS LOW AND LOCKED, HOB ELEVATED IN HIGH FOWLERS, SIDE RAILS UP X3, CALL LIGHT WITHIN REACH. WILL CONTINUE TO MONITOR THROUGHOUT SHIFT.
[2021-06-11 20:00] VITALS: BP 176/83
[2021-06-11] MEDS: *INSULIN REGULAR(HUMULIN R)HUM 100 UNIT/ML VIAL SQ PRN (21:48)
[2021-06-11 21:49] VITALS: BP 132/79
[2021-06-12] VITALS: BP 132/78
[2021-06-12 04:00] VITALS: BP 155/89
--- NOTE | 2021-06-12 06:28 | NUR ---
RN NOTE PATIENT RESTING IN BED. A/OX3. TOLERATING ROOM AIR. NO RESP DISTRES. NO PAIN. NO DISTRESS. IV RIGHT HAND #20. BED REMAINS LOW AND LOCKED, HOB ELEVATED IN HIGH FOWLERS, SIDE RAILS UP X3, CALL LIGHT WITHIN REACH. WILL ENDORSE TO ONCOMING SHIFT,
--- NOTE | 2021-06-12 07:15 | NUR ---
RN NOTE PT IS AWAKE ON BED A/O X2 VERBALLY RESPONSIVE ON ROOM AIR , O2SAT 98%, BREATHING EVEN AND UNLABORED, IV SITE ON LEFT HAND, AND FLUSHING WELL. ON DVT PPX, NO BLEEDING NOTED. SAFETY MEASURES OBSERVED. CALL LIGHT WITHIN REACH. BED WHEELS LOCKED, AND WILL CONTINUE TO MONITOR.
[2021-06-12 08:00] VITALS: BP 149/70
[2021-06-12] MEDS: BLOOD SUGAR DIAGNOSTIC 1 EACH STRIP IN SCH ×4 (08:54→21:12)
[2021-06-12] MEDS: DEXAMETHASONE SOD PHOSPHATE 10 MG/ML VIAL IV SCH (08:58)
[2021-06-12] MEDS: PANTOPRAZOLE 40 MG TABLET.DR PO SCH (09:00)
[2021-06-12] MEDS: QUETIAPINE FUMARATE 25 MG TABLET PO SCH ×2 (09:00→17:56)
[2021-06-12] MEDS: hydrALAZINE HCL 25 MG TABLET PO PRN (09:00)
[2021-06-12] MEDS: AMLODIPINE BESYLATE 5 MG TABLET PO SCH ×2 (09:00→17:55)
[2021-06-12] MEDS: HEPARIN SODIUM, PORCINE 5000 UNITS/1 ML VIAL SQ SCH ×2 (09:02→21:08)
[2021-06-12] MEDS: INSULIN REGULAR, HUMAN 100 UNIT/ML 3 ML VIAL SQ PRN ×3 (09:09→18:40)
[2021-06-12] MEDS ORDERED: APIX5TAB PO (10:01)
[2021-06-12] MEDS ORDERED: *INS REG3 SQ (10:01)
[2021-06-12] MEDS ORDERED: AMLO-212 PO (10:01)
[2021-06-12] MEDS ORDERED: INSU100V28 SQ (10:01)
[2021-06-12] MEDS ORDERED: QUET25TA PO (10:01)
[2021-06-12] MEDS ORDERED: DEXA4TAB PO (10:01)
[2021-06-12] MEDS ORDERED: Blood Sugar Diagnostic IN (10:01)
[2021-06-12] MEDS ORDERED: HYDR-4076 PO (10:01)
[2021-06-12] MEDS ORDERED: PANT40TA2 PO (10:01)
--- NOTE | 2021-06-12 10:27 | NUR ---
RN NOTE PATIENT SEEN BY ASSISTANT BANQUET MANAGER ELLI DOMÍNGUEZ, FOR DISCHARGE, UPDATED ASSISTANT BANQUET MANAGER REGARDING PATIENT CURRENT CONDITION.
--- NOTE | 2021-06-12 13:28 | NUR ---
RN NOTE PT REFUSED INSULIN INJECTION.
--- NOTE | 2021-06-12 13:34 | NUR ---
RN NOTE NOTIFIED ELLI DOMÍNGUEZ PATIENT REFUSING INSULIN, AND BODY CHECK PRIOR TO DISCHARGE.
--- NOTE | 2021-06-12 14:29 | NUR ---
RN NOTE PATIENT DISCHARGE TO [facility], REPORT GIVEN TO JESSICA MUNOZ.
[2021-06-12] MEDS ORDERED: POTASSIUM CHLORIDE 20 MEQ TAB.PRT.SR PO ONE (15:00)
--- NOTE | 2021-06-12 15:00 | NUR ---
RN NOTE PATIENT REFUSED TO BE TRANSPORTED TO [facility] MD AWARE, RADIO DIVISION OFFICER HAILE AWARE.
[2021-06-12] MEDS: LORAZEPAM INJ 2 MG/ML VIAL IV PRN ×2 (15:17→15:47)
--- NOTE | 2021-06-12 15:47 | NUR ---
PATIENT PULLED OUT IV AND REMOVING OXYGEN,PER ELLI GRINDER MACHINE SETTER OK TO GIVE ATIVAN IM.
--- NOTE | 2021-06-12 15:48 | NUR ---
ATIVAN 1MG GIVEN IM LEFT DELTOID MUSCLE.
[2021-06-12 16:00] VITALS: BP 147/81
--- NOTE | 2021-06-12 18:53 | NUR ---
RN NOTE PT OBSERVED IN BED AWAKE, A/O X2 VERBALLY RESPONSIVE ON ROOM AIR , O2SAT 98%, BREATHING EVEN AND UNLABORED, PATIENT PULLED OUT IV SITE AND REFUSED NEW PLACEMENT. ON DVT PPX NO BLEEDING NOTED. FOR DISCHARGE TO [facility] REPORT GIVEN TO JESSICA MUNOZ ETA OF IT SYSTEMS ADMINISTRATOR IS 2129, PATIENT GIVEN ATIVAN IM ORDERED, SAFETY MEASURES OBSERVED. CALL LIGHT WITHIN REACH. BED WHEELS LOCKED, AND WILL CONTINUE TO MONITOR. WILL ENDORSE TO NOC SHIFT
--- NOTE | 2021-06-12 19:30 | NUR ---
RN OPENING NOTES: RECEIVED PT A/OX2-3 IN BED RESTING COMFORTABLY. PATIENT IN NO S/SX OF ACUTE DISTRESS AT THIS TIME. NO SOB NOTED. PATIENT'S BREATHING IS EVEN AND UNLABORED. PATIENT IS ON ROOM AIR ; TOLERATING WELL. PATIENT ON TELE MONITORING READING SINUS RHYTHM HR IS @90 AT THE TIME OF RECEIVED. PATIENT ON CARDIAC DIET; TOLERATES WELL. NO IV ACCESS UPON RECEIVED ; PT REFUSED PLACEMENT. SWEENEY CATH IN PLACE, MODERATE URINE OUTPUT NOTED. SAFETY MEASURES HAVE BEEN PROVIDED AND IMPLEMENTED. PATIENT BED ALARM IS ON. HEAD OF BED ELEVATED. BED IS LOCKED, IN LOWEST POSITION AND SIDE RAILS UP. CALL LIGHT WITHIN REACH OF THE PATIENT. APPLICABLE ISOLATION PRECAUTIONS IN PLACE. WILL CONTINUE TO MONITOR AND REASSESS FOR ANY CHANGES AND WILL CARRY OUT ANY ONGOING AND ACTIVE MD ORDER.
[2021-06-12 20:00] VITALS: BP 144/89
[2021-06-12] MEDS: *INSULIN REGULAR(HUMULIN R)HUM 100 UNIT/ML VIAL SQ PRN (21:14)
--- NOTE | 2021-06-12 22:45 | NUR ---
RN NOTES [phone]- AMBULANCE WITH 2 EMT STAFF CAME IN AROUND 0 TO SENIOR HOUSEKEEPER PT TO BE TRANSPORTED/TRANSFERRED TO [facility] ; SEVERAL ATTEMPTS DONE BUT PT REFUSES TO GO. CRM SYSTEM ADMINISTRATOR @ [facility] AND PRIMARY RN INTERVENE BUT PT STILL REFUSES. PT IS CONFUSED BUT CALM UPON ASSESSMENT OF RNs. EMT'S LET PT SIGNED AMA; PER THERE ASSESSMENT PT IS ALERT AN THEY CANT TRANSPORT HER WITH REFUSAL. PRIMARY RN AND CRM SYSTEM ADMINISTRATOR ACKNOWLEDGED . MULTIPLE CALL ATTEMPTS ALSO DONE (4X) TO PT'S DAUGHTER (REID [phone]) DURING THE DURATION OF TRANSPORT ISSUE BUT ALL ATTEMPTS UNSUCCESSFUL. LEFT VOICEMAIL AND REQUESTED FOR CALLBACK. NSG SUP MADE AWARE. WILL INFORM ZI RAMOS.
--- NOTE | 2021-06-12 23:00 | NUR ---
RN NOTES CALL EPIC GRP AND LEFT CALLBACK REQUEST FOR ZI RAMOS (DR. SMITH)TO INFORM PT REFUSED TO BE TRANSFERRED AND TO BE TRANSPORTED TO [facility]. AWAITING FOR CALLBACK Addendum: 06/12/21 at 2318 by LESLIE BURKETT RN RECEIVED CALLBACK FROM DR. SMITH AND INFORMED ABOUT PT NOT TRANSFERRED TO [facility] DUE TO PT'S REFUSAL. ACKNOWLEDGED. HE REQUESTED TO INFORM HOSPITALIST IN AM TO BE INFORMED TOO. RN ACKNOWLEDGED.
--- NOTE | 2021-06-13 02:10 | NUR ---
RN NOTES PT NOTED TO BE RESTLESS AND ANXIOUS; WITH MILD DESTRUCTIVE BEHAVIOR. PROVIDED SAFE AND COMFORTING ENVIRONMENT AND ADMINISTERED PRN MEDICATION NEEDED PER INDICATION. GIFT SHOP CLERK MADE AWARE. WILL CONTINUE TO ASSESS AND MONITOR THROUGHOUT THE SHIFT.
[2021-06-13] MEDS: LORAZEPAM INJ 2 MG/ML VIAL IV PRN ×2 (02:11→13:40)
[2021-06-13 04:00] VITALS: BP 154/90
--- NOTE | 2021-06-13 04:05 | NUR ---
RN NOTES RECEIVED CALLBACK FROM REID [phone] (PT DAUGHTER);INFORMED THAT PT REFUSED TO BE TRANSFERED TO SNF SCHEDULED. ALSO PROVIDED GENERAL UPDATES ABOUT PT; V/S WNL AND IN NO ACUTE DISTRESS AT THIS TIME. REID ACKNOWLEDGED. SHE REQUESTED TO TALK TO PT AT THIS TIME, RN ADVISED HER TO CALLBACK IN THE MORNING PT IS SLEEPING AND WOULD WANT TO MAXIMIZE REST PERIOD POSSIBLE. REID ACKNOWLEDGED.
--- NOTE | 2021-06-13 04:30 | NUR ---
RN NOTES NO NOTED CHANGES IN PATIENT CONDITION AT THIS TIME; PATIENT VITALS STABLE, NO SIGNS OF ACUTE RESPIRATORY DISTRESS. AM PATIENT CARE RENDERED. KALSOMINER MADE AWARE. WILL CONTINUE TO MONITOR AND REASSESS FOR ANY CHANGES THROUGHOUT THE SHIFT.
--- NOTE | 2021-06-13 06:54 | NUR ---
RN CLOSING NOTE: PATIENT REMAINS IN ROOM IN NO SIGNS OF RESPIRATORY DISTRESS, PATIENT STILL ROOM AIR;TOLERATING WELL SATURATING @ >95% SP02. SAFETY MEASURES IMPLEMENTED, BED IN LOWEST POSITION, LOCKED, SIDE RAILS UP, CALL LIGHT WITHIN REACH. ALL NEEDS AND ORDERS ADDRESSED DURING THE SHIFT. ALL DUE MEDS GIVEN ORDERED & SCHEDULED ; PATIENT TOLERATED WELL. PATIENT KEPT CLEAN AND COMFORTABLE WITHIN THE SHIFT. PATIENT ENDORSED TO INCOMING SHIFT RN WITH STABLE VITAL SIGN AND FOR CONTINUITY OF CARE.
[2021-06-13] MEDS: BLOOD SUGAR DIAGNOSTIC 1 EACH STRIP IN SCH ×4 (07:49→22:05)
[2021-06-13] MEDS: DEXAMETHASONE SOD PHOSPHATE 10 MG/ML VIAL IV SCH ×2 (08:20→08:40)
[2021-06-13] MEDS: PANTOPRAZOLE 40 MG TABLET.DR PO SCH (08:20)
[2021-06-13] MEDS: QUETIAPINE FUMARATE 25 MG TABLET PO SCH ×2 (08:20→17:00)
[2021-06-13] MEDS: AMLODIPINE BESYLATE 5 MG TABLET PO SCH ×2 (08:23→17:00)
[2021-06-13] MEDS: HEPARIN SODIUM, PORCINE 5000 UNITS/1 ML VIAL SQ SCH (08:25)
--- NOTE | 2021-06-13 08:40 | NUR ---
PATIENT WAS DUE TO DISCHARGE YESTERDAY - NO IV SITE PRESENT - DEXAMETHASONE NOT ADMINISTERED.
[2021-06-13] MEDS: INSULIN REGULAR, HUMAN 100 UNIT/ML 3 ML VIAL SQ PRN (11:25)
[2021-06-13 12:16] VITALS: BP 134/68
--- NOTE | 2021-06-13 14:00 | NUR ---
patient on stretcher already with ambulance,keep removing mask and refused to wear it,paramedics denied to transfer patient for safety issue and they cannot physically restraint pt. made awre.
--- NOTE | 2021-06-13 14:18 | NUR ---
patient s/p post ativan given refused to wear mask ,explained risk of not waering mask regarding spread of virus,still refusing to wear mask despite antianxiety given and explanation.daughter refused to talk to pt. aron figueroa made aware. Federico Huitron np made aware and hold the discharge need psyche envolve with dc planning.
--- NOTE | 2021-06-13 15:09 | NUR ---
room air sat at rest 88%,kianna self sealing fuel tank repairer ordered home oxygen ,cm made aware.
--- NOTE | 2021-06-13 18:43 | NUR ---
RN NOTE PT TOO SLEEPY TO GIVE MEDICATION. DID NOT ADMINISTER 1700 SEROQUEL OR AMLODIPINE. BP IS 141/85. CHARGE NURSE AWARE.
--- NOTE | 2021-06-13 18:56 | NUR ---
MS RN CLOSING NOTE PATIENT CURRENTLY LYING IN BED, RESTING. EASY TO AROUSE BUT IS VERY LETHARGIC. A/O X2-3. ON 3L NASAL CANNULA - TOLERATING WELL BUT PATIENT TENDS TO PULL OUT NASAL CANNULA. NO SOB NOTED. NO DISTRESS/DISCOMFORT NOTED. SWEENEY CATHETER NOTED - IN PLACE AND PATENT - DRAINING TO GRAVITY. NO IV ACCESS. PATIENT WAS SUPPOSED TO DISCHARGE TODAY AROUND 1PM, HOWEVER, PATIENT WAS REFUSING TO WEAR A MASK SO AMBULANCE REFUSED TO TAKE HER. DIFFERENT AMBULANCE IS SCHEDULED TO PICK HER UP THIS EVENING AND TAKE HER TO SNF. SAFETY MEASURES IN PLACE. CALL LIGHT WITHIN REACH. WILL ENDORSE TO INTERLIBRARY [employer] [facility] [employer].
[2021-06-13] MEDS: hydrALAZINE HCL 25 MG TABLET PO PRN (19:55)
[2021-06-13 20:00] VITALS: BP 165/70
--- NOTE | 2021-06-13 20:00 | NUR ---
RN NOTE PATIENT IN BED RESTING, ALERT AND ORIENTED X2, CONFUSED. ON O2 4L NASAL CANNULA, O2 SAT 92% NO SIGNS OF DISCOMFORT. FOR DISCHARGE TONIGHT, HOWEVER BLOOD PRESSURE ELEVATED AND TRANSPORTATION IS UNABLE TO TAKE RESIDENT AT THIS TIME. PRN HYDRALAZINE GIVEN ORDERED. BED LOCKED AND IN LOWEST POSITION. CALL LIGHT WITHIN REACH. WILL MONITOR BLOOD PRESSURE.
--- NOTE | 2021-06-13 21:20 | NUR ---
PATIENTS BLOOD PRESSURE 145/70, CALLED TRANSPORTATION, SPOKE TO [facility]. ETA 30-45 MIN.
[2021-06-13] MEDS: *INSULIN REGULAR(HUMULIN R)HUM 100 UNIT/ML VIAL SQ PRN (22:08)
--- NOTE | 2021-06-13 22:30 | NUR ---
PATIENT DISCHARGE TO LONG TERM. AWAKE, ALERT AND ORIENTED X2. ON O2 4L, NO SIGNS OF DISTRESS. DAUGHTER AWARE OF PATIENT.
== END 2021-06-13 22:30 | DRG 871 ==
LOC: ER 19:33 → TELE1 06-06 00:11 → MEDSG1 06-09 13:13
PROVIDERS: ADMIT Student in an Organized Health Care Education/Training Program; ATTEND Nurse Practitioner Acute Care
PROC: XW033E5 Introduction of Remdesivir Anti-infective into Peripheral Vein, Percutaneous Approach, New Technology Group 5 (ICD-10-PCS; principal; 2021-06-06)
DX: A41.89 Other specified sepsis (principal); U07.1 COVID-19; J96.01 Acute respiratory failure with hypoxia; J12.82 Pneumonia due to coronavirus disease 2019; N17.0 Acute kidney failure with tubular necrosis; G92 Toxic encephalopathy; E44.0 Moderate protein-calorie malnutrition; F05 Delirium due to known physiological condition; E87.5 Hyperkalemia; E86.0 Dehydration; Z90.710 Acquired absence of both cervix and uterus; Z68.34 Body mass index [BMI] 34.0-34.9, adult; F03.90 Unspecified dementia, unspecified severity, without behavioral disturbance, psychotic disturbance, mood disturbance, and anxiety; F29 Unspecified psychosis not due to a substance or known physiological condition; Z91.19 Patient's noncompliance with other medical treatment and regimen; F32.9 Major depressive disorder, single episode, unspecified; E66.9 Obesity, unspecified; I10 Essential (primary) hypertension
CPT/HCPCS: 36415; 36600; 70450-TC; 71045-TC; 76770-TC; 80048-TC; 80053-TC; 80061-TC; 80076-TC; 81001; 82728-TC; 82803-TC; 82962-TC; 83605-TC; 83615-TC; 83735-TC; 84100-TC; 84443-TC; 84484-TC; 85025-TC; 85378-TC; 85610-TC; 85730-TC; 86140-TC; 87040-TC; 87081-TC; 87086-TC; 97112-TC; 97116-TC; 97530-TC; C9803; G0378; J0456; J0696; J1100; J1644; J1815; J1940; J2060; J7040; J7042; J7050; J7060